=== PATIENT | male | born 1940 | race Caucasian/White ===

== ENCOUNTER 2017-04-25 07:36 | Emergency (ER) | payer MEDICARE ==
[~2017-04-25] VITALS: Ht 170.2 cm; Wt 72.6 kg
--- NOTE | ~2017-04-25 | CT2 ---
[facility] A Service of [facility] & [facility] RADIOLOGY TEXT RESULTS PATIENT: BRANDY GOMEZ LOCATION: [facility] : 44 UNIT #: [id number] AGE: [address]: Mell Vallejo APRN SEX: M ORDER DR: [id number] [facility] [address] [place], [place] [address] [id number] MR#: [id number] Acc #: [id number] NAME: BRANDY GOMEZ. : 1940 SEX: M STUDY DATE/TIME: 04/25/2017 0948 UNIT: [facility] ROOM: STUDY DESCRIPTION: CT Abd and Pelv W Cont Attending Physician: Mell Vallejo A.P.R.N. Ordering Physician: Ed Gavin Casanova M.D. Primary Care Physician: Kip Ashby M.D. MEDICAL IMAGING REPORT This report is preliminary unless electronic signature is present EXAM CT abdomen and pelvis with contrast, 04/25/2017, 0948 hours. CLINICAL HISTORY 76-year-old man complaining of left sided groin pain for 1 week. History of hypertension. COMPARISON None. TECHNIQUE Dynamic helical CT images were obtained from the lung bases through the pubic symphysis with intravenous contrast only. Sagittal and coronal reconstructions were performed. Contrast was Isovue-370 100 mL IV. Total exam DLP 663 mGy-cm. This CT exam was performed with one or more of the following radiation dose reduction techniques: automatic exposure control, adjustment of mA and/or kV according to patient size, and iterative reconstruction. FINDINGS Images through the lung bases demonstrate linear scarring in the right middle lobe and lingula. The lower lobes are clear and there are no effusions. The distal esophagus demonstrates a few surgical clips but is otherwise normal. Images through the abdomen demonstrate mild diffuse low attenuation of the liver which could indicate fatty change. There is a cyst in the posterior-inferior right lobe of the liver measuring 1.7 cm. The spleen is normal. The pancreas, bile ducts, gallbladder, and pancreatic duct are normal. There are no adrenal lesions. Right kidney contains a 2.4 cm simple cyst in the medial upper pole [facility] A Service of [facility] & [facility] RADIOLOGY TEXT RESULTS PATIENT: BRANDY GOMEZ [facility]: 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 There is a nonobstructing 8 mm stone in the lower pole right kidney. Left kidney contains 2 cysts. There is a 1.6 cm cyst in the anterior mid-left kidney measuring only 8 Hounsfield units. There is a lateral cyst in the lower pole left kidney measuring 2.8 cm and only 6 Hounsfield units. There are no stones in the left kidney. There are no ureteral calculi. The unopacified stomach is normal. There is no small bowel distension or small bowel wall thickening. The appendix is normal. The colon is nondistended. There is no colonic wall thickening. There are a few uncomplicated diverticula of the sigmoid colon. In the left posterior hemipelvis, there is a 3.5 x 3.4 x 4.0 cm fluid density cystic appearing structure which abuts the left posterolateral bladder and is most likely a bladder diverticulum. There is no adenopathy or free fluid. There is a small fat density left inguinal hernia. There is no bowel involvement. Lumbar spine demonstrates degenerative disc disease at L4-5. There is mild disc bulging at L3-4 and L5-S1. There is no fracture or malalignment. There is mild ground-glass change in the central mesenteric fat surrounding the root of the mesentery with a few tiny lymph nodes present. This is a nonspecific finding. There is no pathologic adenopathy associated. IMPRESSION 1. Benign hepatic cyst and small bilateral simple cysts on both kidneys. 2. 8 mm nonobstructing stone in the lower pole right kidney. No ureteral calculi are seen. 3. The gallbladder, bile ducts, pancreas and appendix are normal. 4. There are uncomplicated diverticula of the sigmoid colon. There is no bowel wall thickening or inflammation. 5. Small fat density left inguinal hernia. There is no bowel involvement. 6. Minimal stranding of the mesenteric fat around the root of the mesentery with a few tiny lymph nodes present. This is a nonspecific finding. Given the lack of adenopathy, this is likely a benign finding and could be chronic. Dictated by... Joan Xie M.D. THIS IS AN ELECTRONICALLY VERIFIED REPORT Joan Xie M.D. at 04/25/2017 4:29 PM MELINDA/kirill TD: 04/25/2017 11:30 [facility] A Service of [facility] RADIOLOGY TEXT RESULTS PATIENT: BRANDY GOMEZ LOCATION: [facility] : 42 UNIT #: [id number] AGE: [address]: Mell Vallejo APRN SEX: M ORDER DR: WERNER #: [id number] MEDICAL IMAGING REPORT Page 1 of 1 COPY
[~2017-04-25 07:36] MED LIST: ASPIRIN PO; LIPITOR PO; LOPRESSOR PO; MEVACOR PO; NORVASC PO
[2017-04-25 08:16] LABS: BASOPHIL# 0.1 X10e3 (0-0.3); BASOPHIL% 0.7 % (0-2.5); EOSINOPHIL# 0.3 X10e3 (0-0.7); EOSINOPHIL% 2.9 % (0.0-7.0); HEMATOCRIT 38.5 % (38.0-50.0); HEMOGLOBIN 13.2 gm/dL (13.0-16.0); LYMPHOCYTE# 0.9 X10e3 (1.0-3.5); LYMPHOCYTE% 9.4 % (17.0-45.0); MEAN CELL VOLUME 93.5 FL (83-96); MEAN CORPUSCULAR HGB CONC 34.2 g/dL (30-36); MEAN PLATELET VOLUME 7.3 FL (6.5-11.5); MONOCYTE# 0.9 X10e3 (0-1.0); MONOCYTE% 9.5 % (3.0-12.0); NEUTROPHIL# 7.2 X10e3 (1.5-7.1); NEUTROPHIL% 77.5 % (40-75); PLATELET COUNT 335 X10e3 (140-420); RED BLOOD COUNT 4.12 X10e (3.90-5.60); RED CELL DISTRIBUTION WIDTH 15.2 % (11.0-15.5); WHITE BLOOD COUNT 9.3 X10e3 (4.0-10.5)
[2017-04-25 08:19] LABS: DIFF IND NO
[2017-04-25 08:48] LABS: BILIRUBIN,TOTAL 0.8 mg/dL (0.2-2.0); BUN/CREATININE RATIO 28.75; CALCIUM SERUM 8.8 mg/dL (8.4-10.2); CREATININE SERUM 0.8 mg/dL (0.6-1.4); POTASSIUM 4.3 mmol/L (3.5-5.1); PROTEIN TOTAL SERUM 7.1 g/dL (6.0-8.3)
[2017-04-25 09:27] LABS: URINE SOURCE CLEAN CATCH
[2017-04-25 09:33] LABS: URINE APPEARANCE CLEAR; URINE BILIRUBIN NEG (NEG); URINE BLOOD NEG (NEG); URINE COLOR YELLOW; URINE GLUCOSE NEG (NEG); URINE KETONE NEG (NEG); URINE LEUKOCYTE ESTERASE NEG (NEG); URINE NITRATE NEG (NEG); URINE PH 6.5 (5-8); URINE PROTEIN NEG (NEG); URINE SPECIFIC GRAVITY 1.018 (1.003-1.035); URINE UROBILINOGEN 0.2 MG/DL (NEG)
[2017-04-25 09:38] LABS: CULTURE INDICATED? NO
== END 2017-04-25 11:16 | disposition home or self-care (01) ==
LOC: CED 07:36
PROVIDERS: Nurse Practitioner
DX: R10.32 Left lower quadrant pain (principal); I10 Essential (primary) hypertension; Z88.8 Allergy status to other drugs, medicaments and biological substances
CPT/HCPCS: 36415; 74177; 80053; 81003; 85025; 96374; 96375; 99284; J2270; J2405; Q9967